=== PATIENT | female | born 1960 | race Hispanic/Latino ===

== ENCOUNTER 2019-11-25 18:26 | Inpatient (IN) | payer SELFPAY, OTHER ==
--- OUTSIDE RECORDS SUMMARY | 2019-11-25 18:28 | XMS REPORT ---
:1960 Author Organization [facility] t Address [address] [place] [address] Care Team Providers Name Role Phone Alejandro Weinstein Attending Clinician Problems This patient has no known problems. Allergies, Adverse Reactions, Alerts This patient has no known allergies or adverse reactions. Medications This patient has no known medications. Procedures This patient has no known procedures. Encounters Start End Encounter Admission Attending Care Care Encounter Source Date/Time Date/Time Type Type Clinicians Facility Department ID 2019-09-12 2019-09-12 Office LUZMA Hunter [id number] 09:45:38 10:44:27 Visit Rosa Allen BONDED STRAND OPERATOR [id number] [facility] [id number] MATERNAL [id number] & CHILD [address] [place] [address] Results This patient has no known results.
--- OUTSIDE RECORDS SUMMARY | 2019-11-25 18:29 | XMS REPORT | Summary of Care ---
:1960 Author Organization [facility] - Health Address [address] [place] [address] Care Team Providers Name Role Phone Alejandro Hunter [facility] Primary Care Provider Encounter Details Date Type Department Care Team Description 09/07/2019 Orders Only [facility] Doctor Unassigned, No [address] [facility] [place] [address] [address] [place] [address] Allergies No Known Allergiesdocumented as of this encounter (statuses as of 09/07/2019) Medications Medication Sig Dispensed Refills Start Date End Date Status METFORMIN HCL Take by mouth. 0 Active (METFORMIN ORAL) lisinopril Take 10 mg by 0 Activ e (PRINIVIL,ZESTRIL) 10 mouth daily. mg tablet documented as of this encounter (statuses as of 09/07/2019) Active Problems Problem Noted Date Well woman exam 11/18/2015 Contraceptive management 11/18/2015 Morbid obesity 11/18/2015 Type 2 diabetes mellitus 11/18/2015 Essential hypertension, benign 11/18/2015 History of tubal ligation 11/18/2015 documented as of this encounter (statuses as of 09/07/2019) Immunizations Name Administration Dates Next Due Tdap 11/16/2012 documented as of this encounter Social History Tobacco Use Types Packs/Day Years Used Date Former Smoker Smokeless Tobacco: Never Used Alcohol Use Drinks/Week oz/Week Comments No 0 Standard drinks or equivalent 0.0 Sex Assigned at Date Recorded Not on file Job Start Date Occupation Industry Not on file Not on file Not on file Travel History Travel Start Travel End No recent travel history available. documented as of this encounter Last Filed Vital Signs Not on filedocumented in this encounter Plan of Treatment Health Maintenance Due Date Last Done Comments HEPATITIS C (HCV) SCREEN 1960 HgA1C 1962 PNEUMOCOCCAL 0-64 YEARS COMBINED 11/25/1967 SERIES (1 of 1 - PPSV23) CREATININE (SERUM) 11/25/1971 EYE EXAM 11/25/1971 LDL-C 11/25/1971 URINE MICROALBUMIN 11/25/1971 FOOT EXAM 11/25/1979 COLONOSCOPY 11/25/2011 Zoster Recombinant Vaccine (SHINGRIX) 11/25/2011 (1 of 2) LUNG CANCER SCREEN: Recommended for 2016 age 55-80 with 30 + pack year history INFLUENZA VACCINE (#1) 2019 Breast Cancer Screening (MAMMOGRAM) 09/14/2019 09/13/2018 PAP SMEAR 09/11/2021 09/11/2018, 11/17/2015, 01/06/2007 DTaP,Tdap,and Td Vaccines (2 - Td) 11/16/2022 11/16/2012 documented as of this encounter Procedures Procedure Name Priority Date/Time Associated Diagnosis Comme nts ASSIGNMENT OF BENEFITS Routine 09/07/2019 9:44 AM 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
--- OUTSIDE RECORDS SUMMARY | 2019-11-25 18:29 | XMS REPORT | Summary of Care ---
:[address] [facility] Address [address] [place] [address] Care Team Providers Name Role Phone Alejandro Hunter Primary Care Provider Reason for Referral Radiology Services (Routine) Status Reason Specialty Diagnoses / Referred By Referred To Procedures Contact Contact New Request Diagnostic Diagnoses Well woman exam [place], Radiology Procedures BI SCREENING MAMMOGRAM BILATERAL JESSICA Land [address] [place] [address] Reason for Visit Reason Comments Well Woman Exam Encounter Details Date Type Department Care Team Description 09/12[facility] ounter for other contraceptive management (Primary Dx); JESSICA Ge History of tubal ligation; [address] [place] [address] Well woman exam; [facility] A Morbid obesity; [address] [place] [address] Essential hypertension, benign; [phone] Diabetes mellitus type 1, controlled, wi thout complications Allergies No Known Allergiesdocumented as of this encounter (statuses as of 09/12/2019) Medications Medication Sig Dispensed Refills Start Date End Date Status METFORMIN HCL (METFORMIN Take by mouth. 0 Active ORAL) lisinopril Take 10 mg by 0 Activ e (PRINIVIL,ZESTRIL) 10 mg mouth daily. tablet atorvastatin 40 mg Take 40 mg by 0 Active tablet mouth at bedtime. documented as of this encounter (statuses as of 09/12/2019) Active Problems Problem Noted Date Well woman exam 11/18/2015 Contraceptive management 11/18/2015 Morbid obesity 11/18/2015 Type 2 diabetes mellitus 11/18/2015 Essential hypertension, benign 11/18/2015 History of tubal ligation 11/18/2015 documented as of this encounter (statuses as of 09/12/2019) Immunizations Name Administration Dates Next Due Tdap 11/16/2012 documented as of this encounter Social History Tobacco Use Types Packs/Day Years Used Date Former Smoker Cigarettes Quit: 09/12/19 08 Smokeless Tobacco: Never Used Alcohol Use Drinks/Week oz/Week Comments No 0 Standard drinks or equivalent 0.0 Sex Assigned at Date Recorded Not on file Job Start Date Occupation Industry Not on file Not on file Not on file Travel History Travel Start Travel End No recent travel history available. documented as of this encounter Last Filed Vital Signs Vital Sign Reading Time Taken Comments Blood Pressure 138/80 09/12/2019 10:44 AM TIPPLE OPERATOR Pulse 65 09/12/2019 9:56 AM TIPPLE OPERATOR Temperature 36.2 C (97.1 F) 09/12/2019 9:56 AM TIPPLE OPERATOR Respiratory Rate 16 09/12/2019 9:56 AM TIPPLE OPERATOR Oxygen Saturation - - Inhaled Oxygen Concentration - - Weight 104.4 kg (230 lb 2 oz) 09/12/2019 9:56 AM TIPPLE OPERATOR Height 165.1 cm (5' 5") 09/12/2019 9:56 AM TIPPLE OPERATOR Body Mass Index 38.29 09/12/2019 9:56 AM TIPPLE OPERATOR documented in this encounter Progress Notes Rosa Hunter, [facility] - 09/12/2019 9:30 AM CST Chief complaint: Chief Complaint Patient presents with Well Woman Exam HPI: the patient is here today for WWE and contraceptive mangement. She reports she is doing well with no issues or concerns today. She declines the need for STi testing today. She reports she is menopausal and had a tubal done and is pleased with her method for control. [facility] and DM Pt (denies) current or past physical, sexual or emotional abuse. Histories OB History Para Term AB Living 5 5 5 5 SAB TAB Ectopic Multiple Live Births # Outcome Date GA Lbr [place]/2nd Weight Sex Delivery Anes PTL Lv 5 Term 4 Term 3 Term 2 Term 1 Term Past Medical History: Diagnosis Date Borderline high cholesterol on medication Depression Diabetes mellitus 2006 ongoing, taking medication Hypertension 2006 ongoing, on medication STD (sexually transmitted disease) trichomonas Stroke 2012 4 yrs ago Family History Problem Relation Age of Onset Arthritis Mother Osteoporosis Mother Diabetes Mother Heart Mother Diabetes Maternal Uncle Cancer Maternal Grandmother No Significant Medical Problems Father No Significant Medical Problems Sister No Significant Medical Problems Brother No Significant Medical Problems Maternal Aunt No Significant Medical Problems Paternal Aunt No Significant Medical Problems Paternal Uncle Asthma NoFHx defects NoFHx Breast Cancer NoFHx Colon Cancer NoFHx Ovarian Cancer NoFHx Uterine Cancer NoFHx Depression NoFHx Genetic NoFHx High cholesterol NoFHx Hypertension NoFHx Mental retardation NoFHx Neurological NoFHx Psychiatry NoFHx Other - see comments NoFHx Family Status Relation Name Status Mo Alive MUnc (Not Specified) MGMo Fa Alive Sis Alive Bro (Not Specified) MAunt (Not Specified) PAunt (Not Specified) PUnc (Not Specified) MGFa PGMo PGFa NoFHx (Not Specified) Past Surgical History: Procedure Laterality Date CHOLECYSTECTOMY TUBAL LIGATION Social History Socioeconomic History Marital status: Spouse name: Not on file Number of children: 5 Years of education: Not on file Highest education level: Not on file Occupational History Occupation: none Social Needs Financial resource strain: Not on file Food insecurity: Worry: Not on file Inability: Not on file Transportation needs: Medical: Not on file Non-medical: Not on file Tobacco Use Smoking status: Former Smoker Types: Cigarettes Last attempt to quit: 09/12/2007 Years since quittin.0 Smokeless tobacco: Never Used Substance and Sexual Activity Alcohol use: No Alcohol/week: 0.0 standard drinks Drug use: No Sexual activity: Not Currently Partners: Male control/protection: Post-menopausal Comment: 3+ months Lifestyle Physical activity: Days per week: Not on file Minutes per session: Not on file Stress: Not on file Relationships Social connections: Talks on phone: Not on file Gets together: Not on file Attends anabaptism service: Not on file Active member of club or organization: Not on file Attends meetings of clubs or organizations: Not on file Relationship status: Not on file Intimate partner violence: Fear of current or ex partner: Not on file Emotionally abused: Not on file Physically abused: Not on file Forced sexual activity: Not on file Other Topics Concern Service Not Asked Blood Transfusions No Caffeine Concern Not Asked Occupational Exposure Not Asked Hobby Hazards Not Asked Sleep Concern Not Asked Stress Concern Not Asked Weight Concern Not Asked Special Diet Not Asked Back Care Not Asked Exercise Not Asked Bike Helmet Not Asked Seat Belt Not Asked Self-Exams Not Asked Social History Narrative No domestic violence or abuse Patient lives with spouse and family. Denominational preference Orthodoxy. Social History Substance and Sexual Activity Sexual Activity Not Currently Partners: Male control/protection: Post-menopausal Comment: 3+ months Labs No new labs and No visits with results within 3 Month(s) from this visit. Latest known visit with results is: Office Visit on 09/11/2018 Component Date Value High Risk HPV 09/11/2018 Negative Case Report 09/11/2018 Value:Gynecologic Cytology Case: [id number] Authorizing Provider: Rosa Hunter, Collected: 09/11/2018 1812 [facility] Ordering Location: [facility]- Received: 09/12/2018 0023 [place] First Screen: Max Chavez Specimen: Liquid Based Pap Preparation, CERVIX Clinical Information 09/11/2018 Value:routine Specimen Adequacy 09/11/2018 Satisfactory for Evaluation(Endocervical/Transformation Zone Component Absent) Interpretation 09/11/2018 Negative for intraepithelial lesion or malignancy LMP 09/11/2018 Post Menopausal (specify years in Comments) Educational Note 09/11/2018 Value:This result contains rich text formatting which cannot be displayed here. Radiology Radiology pending. Allergies Jayna has No Known Allergies. Medications Jayna has a current medication list which includes the following prescription(s): atorvastatin, lisinopril, and metformin hcl. Review of Systems Constitutional: Negative. HENT: Negative. Eyes: Negative. Respiratory: Negative. Breasts: Negative. Cardiovascular: Negative. Gastrointestinal: Negative. Genitourinary: Negative. Musculoskeletal: Negative. Skin: Negative. Neurological: Negative. Psychiatric/Behavioral: Negative. Endocrine: Endocrine negative BP (!) 169/90 (BP Location: Right arm, Patient Position: Sitting, BP CUFF SIZE: Adult Large) | Pulse 65 | Temp 36.2 C (97.1 F) (Oral) | Resp 16 | Ht 5' 5" (1.651 m) | Wt 230 lb 2 oz (104.4 kg) | LMP (LMP Unknown) | BMI 38.29 kg/m Pregravid BMI: Could not be calculated Physical Exam Vitals reviewed. Constitutional: She is oriented to person, place, and time. She appears well- developed and well-nourished. Her body habitus is normal. Cardiovascular: Regular rate and rhythm. No peripheral edema present. Pulmonary/Chest: Normal inspiratory effort. Neuro/Psychiatric: She has a normal mood and affect. She is oriented to person, place, and time. Skin: Skin normal. No lesion, no rash and no ulceration present. Breast: Right breast exhibits no mass, no nipple discharge and no tenderness. Left breast exhibits no mass, no nipple discharge and no tenderness. Breasts are symmetrical. Normal left breast and normalright breast Assessment/Plan Return to clinic in 1 year for WWE or sooner as needed Encounter for other contraceptive management (primary encounter diagnosis) History of tubal ligation Comment: routine Plan: no further mgmt Well woman exam Comment: routine Plan: BI SCREENING MAMMOGRAM BILATERAL Morbid obesity Comment: see bmi Plan: BMI discussed, appropriate weight gain, sensible diet, and exercise Essential hypertension, benign Diabetes mellitus type 1, controlled, without complications Comment: managed by PCP Plan: continue mgmt with PCP This visit did not involve counseling and coordination that comprised more than 50% of the visit time. JESSICA Pastrana 09/12/2019 10:47 AM LE OPERATOR Radha Mar RN - 09/12/2019 9:30 AM CST58 year old presents to the clinic for wwe. 1) Previous BCM: menopausal 2) Desired BCM: menopausal 3) LMP: 20+ years 4) Last [place]: 3+ months 5) Last Pap: 09/11/2018 Results: 09/11/20186 6) Tdap: 2012 7) Gardasil: N/A 8) C/O: Patient denies any complaints 9) Patient denies history of physical, emotional, or sexual abuse. Patient states that she currently feels safe at home. Sign LE OPERATOR documented in this encounter Plan of Treatment Date Type Specialty Care Team Description 10/10/2019 Appointment Radiology FarhatadryanTracedenis [place], [facility] [address] [facility] [place] [place] [address] [phone] Name Type Priority Associated Diagnoses Order S chedule BI SCREENING MAMMOGRAM IMAGING Routine Well woman exam Ex pected: 09/12/2019, BILATERAL Expires: 2020 Health Maintenance Due Date Last Done Comments EYE EXAM 09/13/2019 Postponed from 11/25/1971 ([place] Guidelines) HEPATITIS C (HCV) SCREEN 09/13/2019 Postpon ed from 1961 ([place] / Financial) Breast Cancer Screening 09/14/2019 09/13/2018 (MAMMOGRAM) COLONOSCOPY 09/19/2019 Postponed from 11/25/2011 ([place] Guidelines) PNEUMOCOCCAL 0-64 YEARS 09/30/2019 Postpone d from COMBINED SERIES (1 of - 1967 (Alternative PPSV23) Guidelines) CREATININE (SERUM) 09/11/2020 Postponed fro m 11/25/1971 ([place] / Financial) FOOT EXAM 09/11/2020 09/12/2019 HgA1C 09/11/2020 Postponed from 1962 ([place] Guidelines) LDL-C 09/11/2020 Postponed from 11/25/1971 ([place] / Financial) URINE MICROALBUMIN 09/11/2020 Postponed fro m 11/25/1971 ([place] Guidelines) Zoster Recombinant Vaccine 09/11/2020 Postp oned from (SHINGRIX) (1 of 2) 11/25/2011 ( Insurance / Financial) INFLUENZA VACCINE (#1) 2020 Postponed from 03/11/2019 ([place] / Financial) PAP SMEAR 09/11/2021 09/11/2018, 11/17/2015, 01/06/2007 DTaP,Tdap,and Td Vaccines (2 11/16/2022 11/16/2012 - Td) LUNG CANCER SCREEN: Discontinued Recommended for age 55-80 with 30 + pack year history documented as of this encounter Results Not on filedocumented in this encounter Visit Diagnoses Diagnosis Encounter for other contraceptive manage ment - Primary History of tubal ligation Tubal ligation status Well woman exam Routine general medical examination at a health care facility Morbid obesity Essential hypertension, benign Diabetes mellitus type 1, controlled, wi thout complications documented in this encounter Advance Directives Name Relationship Healthcare Agent Relationship Co mmunication Alison Landon Child Primary healthcare agent
--- OUTSIDE RECORDS SUMMARY | 2019-11-25 18:29 | XMS REPORT | Summary of Care ---
:1960 Author Organization [facility] Address [address] [place] [address] Care Team Providers Name Role Phone Alejandro Hunter Primary Care Provider Reason for Referral Radiology Services (Routine) Status Reason Specialty Diagnoses / Referred By Referred To Procedures Contact Contact New Request Diagnostic Diagnoses Well woman exam Akinnikki, Radiology Procedures BI SCREENING MAMMOGRAM BILATERAL JESSICA Land [address] [place] [address] Reason for Visit Reason Comments Well Woman Exam Encounter Details Date Type Department Care Team Description 09/12/2019 [facility] ounter for other contraceptive management (Primary Dx); JESSICA Ge History of tubal ligation; [address] [place] [address] Well woman exam; [facility] Morbid obesity; [address] [place] [address] Essential hypertension, benign; [phone] Diabetes mellitus type 1, controlled, wi thout [...] Comments Blood Pressure 138/80 09/12/2019 10:44 AM GUIDE Pulse 65 09/12/2019 9:56 AM GUIDE Temperature 36.2 C (97.1 F) 09/12/2019 9:56 AM GUIDE Respiratory Rate 16 09/12/2019 9:56 AM GUIDE Oxygen Saturation - - Inhaled Oxygen Concentration - - Weight 104.4 kg (230 lb 2 oz) 09/12/2019 9:56 AM GUIDE Height 165.1 cm (5' 5") 09/12/2019 9:56 AM GUIDE Body Mass Index 38.29 09/12/2019 9:56 AM GUIDE documented in this encounter Progress Notes Rosa Hunter, [facility] - 09/12/2019 9:30 AM CST Chief complaint: [...] method for control. [facility] and [...] file Gets together: Not on file Attends faith service: Not on file Active member of [...] abuse Patient lives with spouse and family. Hinduism preference Anabaptist. Social History Substance and Sexual Activity Sexual Activity Not Currently Partners: Male control/protection: Post-menopausal Comment: 3+ months Labs No new labs and No visits with results within 3 Month(s) from this visit. Latest known visit with results is: Office Visit on 09/11/2018 Component Date Value High Risk HPV 09/11/2018 Negative Case Report 09/11/2018 Value:Gynecologic Cytology Case: [id number] Authorizing Provider: Rosa Hunter, Collected: 09/11/[address] [facility] Ordering Location: [facility]- Received: 09/12/2018 0023 [place] First Screen: Max Chavez Specimen: Liquid Based [...] visit time. JESSICA Pastrana 09/12/2019 10:47 AM E Radha Mar RN - 09/12/2019 9:30 AM CST58 year old presents to the clinic for wwe. 1) Previous BCM: menopausal 2) Desired BCM: menopausal 3) LMP: 20+ years 4) Last [place]: 3+ months 5) Last Pap: 09/11/2018 Results: 09/11/20186 6) Tdap: 2012 7) Gardasil: N/A 8) C/O: Patient denies any complaints 9) Patient denies history of physical, emotional, or sexual abuse. Patient states that she currently feels safe at home. Sign E documented in this encounter Plan of Treatment Date Type Specialty Care Team Description 10/10/2019 Appointment Radiology FarhatadryanTracedenis [place], [facility] [address] [facility] [address] [phone] Name Type Priority Associated Diagnoses Order S [...]
--- NOTE | 2019-11-25 19:33 | RAD REPORT ---
EXAM DESCRIPTION: CT - Ct Stroke Brain Wo Cont - 11/25/2019 7:22 pm CLINICAL HISTORY: Slurred speech COMPARISON: 2011 TECHNIQUE: Computed axial tomography of the head was obtained. All CT scans are performed using dose optimization technique as appropriate and may include automated exposure control or mA/KV adjustment according to patient size. FINDINGS: An intracranial bleed is not seen . The ventricles are normal in caliber. No extra-axial fluid collection is noted. 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 Additional smaller old infarctions frontal lobes. Fluid within the sinuses/ mastoids is not seen. IMPRESSION: No acute intracranial abnormality is seen. If patient continues to have symptoms to [facility] an acute infarct MRI of the brain would be recommended. Dr Ford of the emergency room was notified at 7:26 p.m. November 25, 2019
--- NOTE | 2019-11-25 20:03 | RAD REPORT ---
EXAM DESCRIPTION: Monica Single View11/25/2019 7:39 pm CLINICAL HISTORY: fever COMPARISON: 2011 FINDINGS: The lungs appear clear of acute infiltrate. The heart is normal size IMPRESSION: No acute abnormalities displayed
[2019-11-25 20:08] LABS: Absolute Lymphocytes (CBC) 1.1 K/uL (0.7-4.9); Basophils % 0.5 % (0-1.3); Hematocrit 41.6 % (36.0-45.0); Lymphocytes % 6.4 % (15.3-44.8); MPV 9.5 fL (7.6-11.3); RBC Red Blood Cell Count 4.37 M/uL (3.86-4.86)
[2019-11-25] MEDS ORDERED: NA CHLORIDE 0.9% 1,000 ML ONE ×2 (20:15→20:49)
[2019-11-25 20:21] LABS: Protime INR 0.96
[2019-11-25 20:32] LABS: ALT/SGPT 39 U/L (12-78); AST/SGOT 24 U/L (15-37); Albumin 3.8 g/dL (3.4-5.0); Alkaline Phosphatase 66 U/L (45-117); Amylase 46 U/L (25-115); BUN Blood Urea Nitrogen 9 mg/dL (7-18); Bicarbonate 21 mmol/L (21-32); Bilirubin Direct 0.2 mg/dL (0-0.2); Bilirubin Total 0.7 mg/dL (0.2-1.0); CKMB Creatine Kinase MB < 1.0 ng/mL (0.3-3.6); Creatine Phosphokinase 102 U/L (26-192); Glucose Level 209 mg/dL (74-106); Lipase 95 U/L (73-393); Potassium 3.5 mmol/L (3.5-5.1); Protein, Total 7.7 g/dL (6.4-8.2); Sodium Level 138 mmol/L (136-145); Troponin (Emerg Dept Use Only) < 0.02 ng/mL (0.0-0.045)
[2019-11-25 20:39] LABS: Urine Blood 1+ (NEG); Urine Glucose NEGATIVE (NEG); Urine Protein NEGATIVE (NEG)
[2019-11-25 20:41] LABS: Urine Bacteria <20 /HPF (<20); Urine Culture Reflex Order NOT NEEDED; Urine RBC <5 /HPF (NONE SEEN)
--- NOTE | 2019-11-25 20:45 | ER ---
Nurse's Notes [facility] Name: Jayna Ladnon Age: 59 yrs Sex: Female : 1960 Arrival Date: 11/25/2019 Time: 18:34 Bed 6 Private MD: Diagnosis: Sepsis, unspecified organism Presentation: 11/24 18:24 Chief complaint: EMS states: Called out for hyperglycemia, BS 214. Pt. is A \T\ O x 4, rb1 anxious. Fever of 103, administered Tylenol 1 gram PO x 1. All vital signs are elevated. Coronavirus screen: Patient reports a cough. Patient denies shortness of breath or difficulty breathing. Patient reports a measured and/or subjective temperature greater than 100.4F. Patient denies travel on a cruise ship or to a country the [facility] currently lists as an affected area. Patient denies contact with known and/or suspected case of COVID-19. Ebola Screen: Patient denies travel to an Ebola-affected area in the 21 days before illness onset. Initial Sepsis Screen: Does the patient meet any 2 criteria? Temp <36.0*C (96.8*F)) or > 38.3*C (100.9*F). HR > 90 bpm. Does the patient have a suspected source of infection? Yes: Productive cough/pneumonia. Risk Assessment: Do you want to hurt yourself or someone else? Patient reports no desire to harm self or others. Onset of symptoms was November 25, 2019. 18:24 Method Of Arrival: EMS: [facility] rb1 18:24 Acuity: LOIDA 3 rb1 19:05 Acuity: LOIDA 2 ca1 Triage Assessment: 18:24 General: Appears in no apparent distress. comfortable, Behavior is calm, cooperative, rb1 Reports chills for fever for. Pain: Denies pain. Neuro: Level of Consciousness is awake, alert, obeys commands, Oriented to person, place, time, situation. Cardiovascular: Capillary refill < 3 seconds. Respiratory: Reports cough that is productive, Airway is patent Respiratory effort is even, unlabored, Respiratory pattern is regular, symmetrical, Denies shortness of breath. GI: No signs and/or symptoms were reported involving the gastrointestinal system. : No signs and/or symptoms were reported regarding the genitourinary system. Derm: Skin is pink, warm \T\ dry. Musculoskeletal: Range of motion: intact in all extremities. Historical: - Allergies: 18:24 No Known Allergies; rb1 - Home Meds: 20:06 lisinopril Oral [Active]; Metformin Oral [Active]; mg2 - PMHx: 18:24 diabetes; Hypertension; CVA; rb1 - PSHx: 18:24 Hysterectomy; rb1 - Immunization history:: Adult Immunizations up to date. - Social history:: Smoking status: Patient/guardian denies using. Screenin:24 Abuse screen: Denies threats or abuse. Nutritional screening: No deficits noted. rb1 Tuberculosis screening: No symptoms or risk factors identified. Fall Risk None identified. 20:18 Patient has been NPO before screening. The patient is alert, able to follow commands. mg2 The patient does not exhibit slurred or garbled speech The patient is not exhibiting difficulty speaking. The patient is able to swallow own secretions with no drooling or need for suction. Patient tolerated one teaspoon of water. No drooling, immediate coughing, gurgling, or clearing of the throat was noted. The patient tolerated 90mL of water. No drooling, immediate coughing, gurgling, or clearing of the throat was noted. The patient passed the bedside swallow screening. Oral medications may be given as ordered. Contact Physician for further diet orders. Provider notified of bedside swallow screening results: Dallas Ford MD. Assessment: 18:24 General: See triage assessment. rb1 20:04 General: Appears in no apparent distress. comfortable, Behavior is calm, cooperative. mg2 Pain: Denies pain. Neuro: Level of Consciousness is awake, alert, obeys commands, Oriented to person, place, time, situation. Cardiovascular: Capillary refill < 3 seconds Patient's skin is warm and dry. Respiratory: Airway is patent Respiratory effort is even, unlabored, Respiratory pattern is regular, symmetrical. GI: No signs and/or symptoms were reported involving the gastrointestinal system. : No signs and/or symptoms were reported regarding the genitourinary system. EENT: No signs and/or symptoms were reported regarding the EENT system. Derm: Skin is intact, is healthy with good turgor, Skin is pink, warm \T\ dry. normal. Musculoskeletal: Circulation, motion, and sensation intact. Capillary refill < 3 seconds. 20:38 Reassessment: CRITICAL LAB: LACTATE 3.7. Dr. Ford notified. ca1 21:06 Reassessment: Tereza [phone]. Daughter call for updates. ca1 21:07 Reassessment: Patient appears in no apparent distress at this time. Patient and/or ca1 family updated on plan of care and expected duration. Pain level reassessed. Patient is alert, oriented x 3, equal unlabored respirations, skin warm/dry/pink. 22:20 Reassessment: Patient appears in no apparent distress at this time. Patient and/or mg2 family updated on plan of care and expected duration. Pain level reassessed. Patient is alert, oriented x 3, equal unlabored respirations, skin warm/dry/pink. Vital Signs: 18:24 BP 165 / 94; Pulse 119; Resp 18; Temp 101.2; Pulse Ox 95% ; Weight 103.42 kg (R); rb1 Height 5 ft. 5 in. (165.10 cm) (R); Pain 0/10; 20:02 BP 138 / 89; Pulse 121; Resp 24 S; Pulse Ox 96% on R/A; ca1 20:05 Temp 98.7(O); ca1 21:02 BP 144 / 93; Pulse 102; Resp 18; Pulse Ox 98% on R/A; mg2 21:07 Temp 98.8(O); ca1 21:38 BP 141 / 73; Pulse 103; Resp 18 S; Pulse Ox 99% on R/A; ca1 22:19 BP 133 / 86; Pulse 94; Resp 18; Temp 99; Pulse Ox 98% on R/A; mg2 18:24 Body Mass Index 37.94 (103.42 kg, 165.10 cm) rb1 ED Course: 18:24 Arm band placed on right wrist. rb1 18:24 Patient has correct armband on for positive identification. Bed in low position. Call rb1 light in reach. Side rails up X 1. Pulse ox on. NIBP on. Warm blanket given. 18:24 No provider procedures requiring assistance completed. rb1 18:24 Flu and/or RSV swab sent to lab. Strep swab sent to lab. Covid. rb1 18:34 Patient arrived in ED. aa5 18:52 Dafne Jesus, RN is Primary Nurse. rb1 18:59 Triage completed. rb1 19:08 Dallas Ford MD is Attending Physician. tw4 19:21 CT Stroke Brain w/o Contrast In Process Unspecified. EDMS 19:45 Stroke CXR 1 View In Process Unspecified. EDMS 19:45 Inserted saline lock: 20 gauge in right forearm, using aseptic technique. Blood mg2 collected. 20:44 Noemy Barrow MD is Hospitalizing Provider. tw4 21:08 Patient admitted, IV remains in place. ca1 Administered Medications: 20:11 Drug: NS 0.9% 1000 ml Route: IV; Rate: 1 bolus; Site: right forearm; mg2 22:23 Follow up: Response: No adverse reaction; IV Status: Completed infusion; IV Intake: mg2 1000ml 20:43 Drug: Rocephin - (cefTRIAXone) 1 grams Route: IVPB; Infused Over: 30 mins; Site: left mg2 forearm; 22:23 Follow up: Response: No adverse reaction; IV Status: Completed infusion mg2 20:43 Drug: AZITHromycin 1 grams Route: PO; mg2 22:22 Follow up: Response: No adverse reaction mg2 20:45 Drug: NS 0.9% 2000 ml Route: IV; Rate: 2000 ml; Site: right forearm; mg2 22:23 Follow up: Response: No adverse reaction; IV Status: Infusion continued upon admission; mg2 IV Intake: 200ml 20:49 CANCELLED (Duplicate Order): NS 0.9% 2000 ml IV at 2000 ml once; 30 ml/kg order mg2 obtained pt has recieved 1 liter Intake: 22:23 IV: 200ml; Total: 200ml. mg2 22:23 IV: 1000ml; Total: 1200ml. mg2 Outcome: 20:44 Decision to Hospitalize by Provider. tw4 22:21 Admitted to Tele accompanied by [facility], room 414, with chart, Report called to barbi Grover RN 22:21 Condition: stable 22:21 Instructed on the need for admit, Demonstrated understanding of instructions. 22:40 Patient left the ED. mg2 Signatures: Dispatcher [employer] EDMS Elise Mensah, CORI RN aa5 Dafne Jesus, RN RN rb1 Dallas Ford MD MD tw4 Silver Sebastian RN RN mg2 Radha Salas RN RN ca1 Corrections: (The following items were deleted from the chart) 21:08 21:06 Reassessment: Tereza [phone] ca1 ca1 21:31 21:03 Acuity: LOIDA 2 ca1 ca1
--- NOTE | 2019-11-25 20:46 | EDPHYS ---
Physician Documentation [facility] Name: Jayna Landon Age: 59 yrs Sex: Female : 1960 Arrival Date: 11/25/2019 Time: 18:34 Bed 6 Private MD: ED Physician Dallas Ford HPI: 11/24 19:44 This 59 yrs old Female presents to ER via EMS with complaints of High Blood tw4 Sugar. 19:44 The patient reports fever, not measured (subjective). Onset: The symptoms/episode tw4 began/occurred today. Modifying factors: there are no obvious modifying factors. Associated signs and symptoms: Pertinent positives: arthralgias, chills, shortness of breath, Pertinent negatives: abdominal pain, altered mental status, cough, diarrhea, pulling at ears, headache, nausea, night sweats, runny nose, sinus congestion, sinus drainage, skin rash, sore throat. Severity of symptoms: At their worst the symptoms were moderate in the emergency department the symptoms are unchanged. The patient has not experienced similar symptoms in the past. Historical: - Allergies: 18:24 No Known Allergies; rb1 - Home Meds: 20:06 lisinopril Oral [Active]; Metformin Oral [Active]; mg2 - PMHx: 18:24 diabetes; Hypertension; CVA; rb1 - PSHx: 18:24 Hysterectomy; rb1 - Immunization history:: Adult Immunizations up to date. - Social history:: Smoking status: Patient/guardian denies using. ROS: 19:44 Cardiovascular: Negative for chest pain, palpitations, and edema, Respiratory: Negative tw4 for shortness of breath, cough, wheezing, and pleuritic chest pain, Abdomen/GI: Negative for abdominal pain, nausea, vomiting, diarrhea, and constipation, Back: Negative for injury and pain, MS/Extremity: Negative for injury and deformity, Skin: Negative for injury, rash, and discoloration, Neuro: Negative for headache, weakness, numbness, tingling, and seizure. 19:44 Constitutional: Positive for chills, fever, Negative for body aches, fatigue. Exam: 19:44 Constitutional: This is a well developed, well nourished patient who is awake, alert, tw4 and in no acute distress. Head/Face: Normocephalic, atraumatic. Chest/axilla: Normal chest wall appearance and motion. Nontender with no deformity. No lesions are appreciated. Cardiovascular: Regular rate and rhythm with a normal S1 and S2. No gallops, murmurs, or rubs. Normal PMI, no JVD. No pulse deficits. Respiratory: Lungs have equal breath sounds bilaterally, clear to auscultation and percussion. No rales, rhonchi or wheezes noted. No increased work of breathing, no retractions or nasal flaring. Abdomen/GI: Soft, non-tender, with normal bowel sounds. No distension or tympany. No guarding or rebound. No evidence of tenderness throughout. Back: No spinal tenderness. No costovertebral tenderness. Full range of motion. MS/ Extremity: Pulses equal, no cyanosis. Neurovascular intact. Full, normal range of motion. Neuro: Awake and alert, GCS 15, oriented to person, place, time, and situation. Cranial nerves II-XII grossly intact. Motor strength 5/5 in all extremities. Sensory grossly intact. Cerebellar exam normal. Normal gait. Vital Signs: 18:24 BP 165 / 94; Pulse 119; Resp 18; Temp 101.2; Pulse Ox 95% ; Weight 103.42 kg (R); rb1 Height 5 ft. 5 in. (165.10 cm) (R); Pain 0/10; 20:02 BP 138 / 89; Pulse 121; Resp 24 S; Pulse Ox 96% on R/A; ca1 20:05 Temp 98.7(O); ca1 21:02 BP 144 / 93; Pulse 102; Resp 18; Pulse Ox 98% on R/A; mg2 21:07 Temp 98.8(O); ca1 21:38 BP 141 / 73; Pulse 103; Resp 18 S; Pulse Ox 99% on R/A; ca1 22:19 BP 133 / 86; Pulse 94; Resp 18; Temp 99; Pulse Ox 98% on R/A; mg2 18:24 Body Mass Index 37.94 (103.42 kg, 165.10 cm) rb1 MDM: 19:09 Patient medically screened. tw4 19:44 Differential diagnosis: viral Infection, bacterial infection, URI, bronchitis, tw4 pneumonia. Data reviewed: vital signs, nurses notes. Data interpreted: Pulse oximetry: Interpretation: normal. Counseling: I had a detailed discussion with the patient and/or guardian regarding: the historical points, exam findings, and any diagnostic results supporting the discharge/admit diagnosis. Special discussion: I discussed with the patient/guardian in detail that at this point there is no indication for admission to the hospital. It is understood, however, that if the symptoms persist or worsen the patient needs to return immediately for re-evaluation. 11/24 18:43 Order name: Flu; Complete Time: 20:06 11/24 18:43 Order name: Strep; Complete Time: 20:06 11/24 18:43 Order name: COVID-19 11/24 18:44 Order name: Basic Metabolic Panel; Complete Time: 20:33 11/24 18:44 Order name: CBC with Diff; Complete Time: 21:50 11/24 21:50 Interpretation: Normal except: WBC 16.9; MCV 95.0; MN% 2.7; LYM% 6.4; DIANA% 90.0; NEUT A tw4 15.2. 11/24 18:44 Order name: Protime (+inr); Complete Time: 20:33 11/24 18:44 Order name: Ptt, Activated; Complete Time: 20:33 11/24 18:45 Order name: Amylase, Serum; Complete Time: 20:33 11/24 18:45 Order name: Blood Culture Adult (2) 11/24 18:45 Order name: Ckmb; Complete Time: 20:33 11/24 18:45 Order name: CPK; Complete Time: 20:33 11/24 18:45 Order name: Lactate; Complete Time: 21:50 11/24 21:50 Interpretation: Normal except: LAC 3.7. 11/24 18:45 Order name: LFT's; Complete Time: 20:33 11/24 18:45 Order name: Lipase; Complete Time: 20:33 11/24 18:45 Order name: Procalcitonin; Complete Time: 21:50 11/24 21:50 Interpretation: Within normal limits: Procalcitonin 0.23. 11/24 18:45 Order name: Troponin (emerg Dept Use Only); Complete Time: 20:33 11/24 18:45 Order name: Urine Microscopic Only; Complete Time: 21:50 [facility] 11/24 21:50 Interpretation: Within normal limits. [facility] 11/24 19:17 Order name: Throat Culture [facility] 11/24 20:06 Order name: Urine Dipstick--Ancillary (enter results); Complete Time: 21:50 [facility] 11/24 21:50 Interpretation: Normal except: UBLD 1+; UKET 1+. [facility] 11/24 20:06 Order name: Urine --Ancillary (enter results); Complete Time: 21:50 [facility] 11/24 21:50 Interpretation: Within normal limits: URINE PREG NEG. [facility] 11/24 20:08 Order name: Glucose, Ancillary Testing; Complete Time: 20:33 [facility] 11/24 20:38 Order name: Urine Microscopic Only [facility] 11/24 21:41 Order name: CBC Smear Scan; Complete Time: 21:50 [facility] 11/24 21:45 Order name: Urinalysis [facility] 11/24 21:45 Order name: CBC with Automated Diff [facility] 11/24 21:45 Order name: CBC with Automated Diff [facility] 11/24 21:45 Order name: Comprehensive Metabolic Panel [facility] 11/24 21:45 Order name: Comprehensive Metabolic Panel [facility] 11/24 21:45 Order name: Lactate [facility] 11/24 21:45 Order name: Lactate [facility] 11/24 18:44 Order name: CT Stroke Brain w/o Contrast; Complete Time: 20:06 [facility] 11/24 18:44 Order name: Stroke CXR 1 View; Complete Time: 20:33 [facility] 11/24 18:44 Order name: EKG; Complete Time: 18:45 [facility] 11/24 18:44 Order name: Accucheck; Complete Time: 20:01 [facility] 11/24 18:44 Order name: Cardiac monitoring; Complete Time: 20:01 [facility] 11/24 18:44 Order name: EKG - Nurse/Tech; Complete Time: 20:01 [facility] 11/24 18:44 Order name: IV Saline Lock; Complete Time: 20:01 [facility] 11/24 18:44 Order name: Labs collected and sent; Complete Time: 20:01 [facility] 11/24 18:44 Order name: NPO; Complete Time: 20:01 [facility] 11/24 18:44 Order name: O2 Per Protocol; Complete Time: 20:01 [facility] 11/24 18:44 Order name: O2 Sat Monitoring; Complete Time: 20:02 [facility] 11/24 18:44 Order name: Stroke Swallow Screen; Complete Time: 20:02 11/24 18:45 Order name: IV Saline Lock - Large Bore; Complete Time: 19:59 [facility] 11/24 18:45 Order name: Urine Dipstick-Ancillary (obtain specimen); Complete Time: 19:59 [facility] 11/24 21:45 Order name: Regular EDMS 11/24 21:45 Order name: Magnesium EDMS 11/24 21:45 Order name: Magnesium EDMS 11/24 21:45 Order name: Phosphorus EDMS 11/24 21:45 Order name: Phosphorus EDMS EC:45 Rate is 177 beats/min. Rhythm is regular. QRS [place] is Normal. RI interval is normal. tw4 QRS interval is normal. QT interval is normal. No Q waves. T waves are Flattened in leads V5, V6. No ST changes noted. Clinical impression: Sinus tachycardia. Interpreted by me. Reviewed by me. Administered Medications: 20:11 Drug: NS 0.9% 1000 ml Route: IV; Rate: 1 bolus; Site: right forearm; mg2 22:23 Follow up: Response: No adverse reaction; IV Status: Completed infusion; IV Intake: mg2 1000ml 20:43 Drug: Rocephin - (cefTRIAXone) 1 grams Route: IVPB; Infused Over: 30 mins; Site: left mg2 forearm; 22:23 Follow up: Response: No adverse reaction; IV Status: Completed infusion mg2 20:43 Drug: AZITHromycin 1 grams Route: PO; mg2 22:22 Follow up: Response: No adverse reaction mg2 20:45 Drug: NS 0.9% 2000 ml Route: IV; Rate: 2000 ml; Site: right forearm; mg2 22:23 Follow up: Response: No adverse reaction; IV Status: Infusion continued upon admission; mg2 IV Intake: 200ml 20:49 CANCELLED (Duplicate Order): NS 0.9% 2000 ml IV at 2000 ml once; 30 ml/kg order mg2 obtained pt has recieved 1 liter Disposition: 11/25/19 20:44 Hospitalization ordered by Noemy Barrow for Inpatient Admission. Preliminary diagnosis is Sepsis, unspecified organism. - Bed requested for Telemetry/MedSurg (Inpatient). - Status is Inpatient Admission. mg2 - Condition is Fair. - Problem is new. - Symptoms are unchanged. Signatures: Dispatcher [employer] EDMS Piotr Aguilar, RN RN Elise Mensah RN RN aa5 Kelly Long RN RN Dafne Jesus, RN RN rb1 Dallas Ford MD MD tw4 Silver Sebastian RN RN mg2 Corrections: (The following items were deleted from the chart) 20:50 20:44 NS 0.9% 2000 ml IV at 2000 ml once; 30 ml/kg order obtained pt has recieved 1 mg2 liter ordered. 22:07 20:44 Hospitalization Ordered by Noemy Barrow MD for Inpatient Admission. Preliminary cg diagnosis is Sepsis, unspecified organism. Bed requested for Telemetry/MedSurg (Inpatient). Status is Inpatient Admission. Condition is Fair. Problem is new. Symptoms are unchanged. tw4 22:40 22:07 11/25/2019 20:44 Hospitalization Ordered by Noemy Barrow MD for Inpatient mg2 Admission. Preliminary diagnosis is Sepsis, unspecified organism. Bed requested for Telemetry/MedSurg (Inpatient). Status is Inpatient Admission. Condition is Fair. Problem is new. Symptoms are unchanged. cg
[2019-11-25] MEDS ORDERED: AZITHROMYCIN 250 MG TAB ONE (20:49)
[2019-11-25] MEDS ORDERED: CEFTRIAXONE/SWI 1gm 1 GM/10 ML SYR ONE (20:49)
[2019-11-25] MEDS ORDERED: IPRATROPIUM BROM 0.5MG/2.5ML NEB PRN (21:33)
[2019-11-25] MEDS ORDERED: ACETAMINOPHEN 500 MG TAB PO PRN (21:33)
[2019-11-25] MEDS ORDERED: ONDANSETRON 4 MG/2 ML VIAL IV PRN (21:33)
[2019-11-25] MEDS ORDERED: ALBUTEROL 2.5 MG/3 ML NEB SOL NEB PRN (21:33)
[2019-11-25 21:40] LABS: Blood Morphology Comment NOT SEEN (NOT SEEN); Platelet Estimate ADEQ; Urine White Blood Cell Casts OK
[2019-11-25] MEDS ORDERED: Levofloxacin500mg IV 500 MG/100 ML BAG IV SCH (22:00)
[2019-11-25] MEDS: ALPRAZOLAM 0.25 MG TABLET PO PRN (23:04)
[2019-11-25] MEDS: NA CHLORIDE 0.9% 1,000 ML IV SCH (23:04)
[2019-11-25 23:08] VITALS: BMI 37.9
[2019-11-25] MEDS ORDERED: PIPER/TAZO/NS 3.375gm 6.750 GM/200 ML BAG ONE (23:19)
[2019-11-25] MEDS: PIPER/TAZO/NS 3.375gm 3.375 GM/100 ML BAG IVPB SCH (23:21)
[2019-11-26] MEDS: PIPER/TAZO/NS 3.375gm 3.375 GM/100 ML BAG IVPB SCH ×3 (05:41→16:05)
[2019-11-26 05:50] LABS: Bilirubin Total 0.6 mg/dL (0.2-1.0); Magnesium 1.9 mg/dL (1.8-2.4); Phosphorus 3.4 mg/dL (2.5-4.9); Potassium 3.5 mmol/L (3.5-5.1); Protein, Total 6.3 g/dL (6.4-8.2)
[2019-11-26 06:13] LABS: Urine Appearance CLEAR; Urine Bilirubin NEGATIVE (NEG); Urine Blood NEGATIVE (NEG); Urine Color YELLOW; Urine Glucose NEGATIVE (NEG); Urine Protein NEGATIVE (NEG); Urine Urobilinogen 0.2 mg/dL (0.2-1.0); Urine pH 6.5 (5.0-7.0)
[2019-11-26 06:14] LABS: Urine Microscopic Reflex ORDER UMIC
[2019-11-26 06:26] LABS: Urine Bacteria <20 /HPF (<20); Urine Culture Reflex Order REFLEXED; Urine RBC <5 /HPF (NONE SEEN)
[2019-11-26 06:36] LABS: Absolute Lymphocytes (CBC) 2.3 K/uL (0.7-4.9); Basophils % 0.6 % (0-1.3); Hematocrit 37.8 % (36.0-45.0); Lymphocytes % 10.6 % (15.3-44.8); RBC Red Blood Cell Count 3.91 M/uL (3.86-4.86)
--- NOTE | 2019-11-26 07:51 | P.HP ---
Certification for Inpatient Patient admitted to: Inpatient With expected LOS: >2 Midnights Patient will require the following post-hospital care: None Practitioner: I am a practitioner with admitting privileges, knowledge of patient current condition, hospital course, and medical plan of care. Services: Services provided to patient in accordance with Admission requirements found in Title 42 Section 412.3 of the Code of Federal Regulations Patient History Date of Service: 11/25/19 Reason for admission: Fever; leukocytosis; nausea/vomiting/diarrhea; lactic acidosis History of Present Illness: patient is a 59-year-old female who came to the hospital with intractable nausea vomiting and diarrhea. She has been feeling sick for over a week. She started off with abdomen pain along with persistent vomiting. She started off with the nausea and vomiting a week prior. This resolved and then she started having multiple days of diarrhea. She has had some abdominal discomfort, but she has spiked temp of a 103 so she came into the hospital because she thought she may have COVID-19. Patient's chest x-ray was unremarkable. Because of her fever and her abdominal symptoms she was admitted to the hospital for possible sepsis. Allergies No Known Allergies Allergy (Verified 11/26/19 00:14) Home Medications: Folic Acid 1 mg PO DAILY #0 tablet 09/20/11 Aspirin [Aspirin EC 81 MG] 81 mg PO DAILY 11/26/19 Lovastatin 40 mg PO BEDTIME 11/26/19 Metformin HCl [Glucophage] 1,000 mg PO BIDWM 11/26/19 - Past Medical/Surgical History Has patient received pneumonia vaccine in the past: Yes Diabetic: Yes -: DM-2 -: hyperlipidemia -: CVA -: hysterectomy -: Laparoscopic cholecystectomy - Family History Father Family History: Reviewed- Non-Contributory - Social History Smoking Status: Never smoker Alcohol use: No CD- Drugs: No Caffeine use: Yes Place of Residence: Home Review of Systems 10-point ROS is otherwise unremarkable Physical Examination - Vital Signs Temperature: 97.7 F Blood Pressure: 144/68 Pulse: 65 Respirations: 16 Pulse Ox (%): 95 - Physical Exam General: Alert, In no apparent distress, Oriented x3 HEENT: Atraumatic, PERRLA, Mucous membr. moist/pink, EOMI, Sclerae nonicteric Neck: Supple, 2+ carotid pulse no bruit, No LAD, Without JVD or thyroid abnormality Respiratory: Clear to auscultation bilaterally, Normal air movement Cardiovascular: Regular rate/rhythm, Normal S1 S2, No murmurs Gastrointestinal: Normal bowel sounds, Soft and benign, Non-distended, No rebound, No guarding, Tenderness (Epigastric region) Musculoskeletal: No clubbing, No swelling, No tenderness Integumentary: No rashes Neurological: Normal gait, Normal speech, Normal strength at 5/5 x4 extr, Normal tone, Sensation intact, Cranial nerves 3-12 intact, Normal affect Lymphatics: No axilla or inguinal lymphadenopathy - Studies Laboratory Data (last 24 hrs) 11/25/19 19:45: PT 11.3, INR 0.96, APTT 27.1 11/25/19 19:45: WBC 16.9 H, Hgb 14.2, Hct 41.6, Plt Count 290 11/25/19 19:45: Sodium 138, Potassium 3.5, BUN 9, Creatinine 0.88, Glucose 209 H, Total Bilirubin 0.7, AST 24, ALT 39, Alkaline Phosphatase 66, Amylase 46, Lipase 95 Microbiology Data (last 24 hrs): 11/25/19 18:40 Nasopharnyx Influenza Type A Antigen Screen - Final 11/25/19 18:40 Nasopharnyx Influenza Type B Antigen Screen - Final 11/25/19 18:40 Throat Group A Streptococcus Rapid Screen - Final Assessment & Plan - Problems (Diagnosis) (1) Abdominal pain Current Visit: Yes Status: Acute (2) Intractable nausea and vomiting Current Visit: Yes Status: Acute (3) Diarrhea Current Visit: Yes Status: Acute (4) Lactic acidosis Current Visit: Yes Status: Acute (5) Leukocytosis Current Visit: Yes Status: Acute - Plan 1. Continue with IV hydration 2. Continue with IV antibiotics 3. Continue with antiemetics 4. NPO 5. CT abdomen/pelvis 6. Monitor labs closely; repeat CBC, BMP, and lactic acid/procalcitonin level is negative 7. GI and DVT prophylaxis Discharge Plan: Home Plan to discharge in: Greater than 2 days - Advance Directives Does patient have a Living Will: No Does patient have a Durable POA for Healthcare: No - Code Status/Comfort Care Code Status Assessed: Yes Code Status: Full Code Critical Care: No Time Spent Managing PTS Care (In Minutes): 45
--- NOTE | 2019-11-26 07:56 | P.PN ---
Subjective Date of Service: 11/26/19 Patient is clinically doing well with no new complaints. She does state that she feels really good. However, her white blood cell count is still elevated to 20,000 now. Her lactic acid level is still elevated. She clinically appears to be doing well; however, with his symptoms and her lab abnormalities we will get CT scan to further evaluate. Review of Systems 10-point ROS is otherwise unremarkable Physical Examination - Vital Signs Temperature: 97.7 F Blood Pressure: 144/68 Pulse: 65 Respirations: 16 Pulse Ox (%): 95 - Physical Exam General: Alert, In no apparent distress, Oriented x3 Respiratory: Clear to auscultation bilaterally, Normal air movement Cardiovascular: Regular rate/rhythm, Normal S1 S2, No murmurs Gastrointestinal: Normal bowel sounds, Soft and benign, Non-distended, Ten derness Musculoskeletal: No clubbing, No swelling, No tenderness Neurological: Normal speech, Normal tone, Sensation intact, Cranial nerves 3-12 intact, Normal affect - Studies Laboratory Data (last 24 hrs) 11/25/19 19:45: PT 11.3, INR 0.96, APTT 27.1 11/25/19 19:45: WBC 16.9 H, Hgb 14.2, Hct 41.6, Plt Count 290 11/25/19 19:45: Sodium 138, Potassium 3.5, BUN 9, Creatinine 0.88, Glucose 209 H, Total Bilirubin 0.7, AST 24, ALT 39, Alkaline Phosphatase 66, Amylase 46, Lipase 95 Microbiology Data (last 24 hrs): 11/25/19 18:40 Nasopharnyx Influenza Type A Antigen Screen - Final 11/25/19 18:40 Nasopharnyx Influenza Type B Antigen Screen - Final 11/25/19 18:40 Throat Group A Streptococcus Rapid Screen - Final Medications List Reviewed: Yes Assessment & Plan - Problems (Diagnosis) (1) Abdominal pain Current Visit: Yes Status: Acute (2) Intractable nausea and vomiting Current Visit: Yes Status: Acute (3) Diarrhea Current Visit: Yes Status: Acute (4) Lactic acidosis Current Visit: Yes Status: Acute (5) Leukocytosis Current Visit: Yes Status: Acute - Plan Continue with current plan of care as mentioned below 1. Continue with gentle hydration; start diet after CT scan if unremarkable 2. Continue with IV antibiotics; continue monitoring vitals and temperature as she had a fever of 103 3. Continue with antiemetics 4. NPO 5. CT abdomen/pelvis pending 6. Monitor labs closely; repeat CBC, BMP, and lactic acid/procalcitonin level is negative 7. GI and DVT prophylaxis Discharge Plan: Home Plan to discharge in: 48 Hours - Advance Directives Does patient have a Living Will: No Does patient have a Durable POA for Healthcare: No - Code Status/Comfort Care Code Status: Full Code Critical Care: No Time Spent Managing PTS Care (In Minutes): 25
[2019-11-26] MEDS ORDERED: METFORMIN HCL 500 MG TAB PO SCH (08:00)
[2019-11-26] MEDS: FOLIC ACID 1 MG TABLET PO SCH ×2 (09:00→11:15)
[2019-11-26] MEDS ORDERED: KCL 20 MEQ/100 mL IVPB 20 MEQ/100 ML BAG IV SCH (09:00)
[2019-11-26] MEDS: ASPIRIN EC 81 MG TAB PO SCH ×2 (09:00→11:15)
[2019-11-26] MEDS: ENOXAPARIN 40 MG/0.4 ML SQ SCH (09:02)
[2019-11-26] MEDS: NA CHLORIDE 0.9% 1,000 ML IV SCH ×2 (09:02→17:01)
[2019-11-26] MEDS ORDERED: POTASSIUM CL SA 10 MEQ TAB PO ONE (09:06)
--- NOTE | 2019-11-26 10:22 | RAD REPORT ---
EXAM DESCRIPTION: CT - Abdomen Pelvis W Contrast - 11/26/2019 9:47 am CLINICAL HISTORY: N/V/D; leukocytosis; elevated lactate; fever-103 COMPARISON: Chest Single View dated 11/25/2019 TECHNIQUE: Biphasic, helical CT imaging of the abdomen and pelvis was performed following 100 ml non -ionic IV contrast. Oral contrast was given. All CT scans are performed using dose optimization technique as appropriate and may include automated exposure control or mA/KV adjustment according to patient size. FINDINGS: Patchy airspace opacities are present in the posterior gutter on the right more prominent airspace consolidation is seen in the posterior gutter on the left abutting the left hemidiaphragm. N o endobronchial lesion. No pleural effusion or pneumothorax. These areas are occult on chest film due to portable technique and large body habitus. Chest is not fully assessed but bilateral lung base pn eumonia is suspected. Diffuse fatty infiltration is present in a normal size liver. No focal liver lesions identifiable. No splenomegaly or focal splenic finding. Cholecystectomy clips are present. No biliary tree dilatation . Homogeneous pancreatic parenchyma with no mass. No peripancreatic inflammatory or edematous stranding . Symmetric renal function is seen with no hydronephrosis or suspicious renal mass. No pyelonephritis o r acute parenchymal process. An 11 millimeter nonobstructing parenchymal or calyx calcification is pr esent posterior lower pole left kidney. Small cysts are present in the left kidney. No perinephric st randing. No adrenal abnormalities. Urinary bladder is fully contracted limiting assessment. No bladder calculi seen. Uterus and ovaries show no suspicious findings. No dilated bowel loops or bowel wall thickening. No free air, free fluid or inflammatory stranding. No mass or bulky lymphadenopathy. A very small left inguinal hernia is present. Fat only periumbilic al hernia is present. No involved bowel. Neck is 3 cm. Hernia is 4 cm AP by 2.5 cm TR. No congestion or edema. No suspicious bony findings. IMPRESSION: Contrast-enhanced CT abdomen pelvis imaging shows no acute or active process. Fatty infiltration of a normal size liver. Patient is status post cholecystectomy with no biliary or pancreatic acute finding. Small fat only periumbilical hernia is present along with a very small fat only left inguinal hernia.
[2019-11-26] MEDS ORDERED: ALBUTEROL 2.5 MG/3 ML NEB SOL NEB PRN (16:00)
[2019-11-26] MEDS ORDERED: GLUCAGON 1 MG/VIAL IM PRN (16:12)
[2019-11-26] MEDS ORDERED: D50W 25 GM/50 ML SYRINGE/VIAL IV PRN (16:12)
[2019-11-26] MEDS: INSULIN -REGULAR HUMAN 50 UNIT/0.5 ML ML SQ SCH ×2 (17:10→21:00)
[2019-11-26] MEDS: ALPRAZOLAM 0.25 MG TABLET PO PRN (21:26)
[2019-11-27] MEDS: PIPER/TAZO/NS 3.375gm 3.375 GM/100 ML BAG IVPB SCH ×2 (01:20→08:27)
[2019-11-27] MEDS: NA CHLORIDE 0.9% 1,000 ML IV SCH ×2 (04:56→14:00)
[2019-11-27 06:06] LABS: Absolute Lymphocytes (CBC) 2.6 K/uL (0.7-4.9); Basophils % 0.9 % (0-1.3); Hematocrit 37.6 % (36.0-45.0); MPV 9.3 fL (7.6-11.3)
[2019-11-27 06:19] LABS: ALT/SGPT 27 U/L (12-78); AST/SGOT 13 U/L (15-37); Albumin 2.9 g/dL (3.4-5.0); Alkaline Phosphatase 47 U/L (45-117); BUN Blood Urea Nitrogen 5 mg/dL (7-18); Bicarbonate 23 mmol/L (21-32); Bilirubin Total 0.5 mg/dL (0.2-1.0); Glucose Level 187 mg/dL (74-106); Potassium 3.4 mmol/L (3.5-5.1); Protein, Total 6.3 g/dL (6.4-8.2); Sodium Level 143 mmol/L (136-145)
--- NOTE | 2019-11-27 07:03 | EKG ---
Test Date: 2019-11-25 Test Time: 19:39:11 [employer] Associate: BRYON MEASUREMENT RESULTS: Intervals: Rate: 117 OK: 186 QRSD: 82 QT: 308 QTc: 429 Joshua: P: -20 OK: 186 QRS: -5 T: 11 INTERPRETIVE STATEMENTS: Sinus tachycardia Inferior infarct, age undetermined Abnormal ECG No previous ECG available for comparison Electronically Signed On 11-27-19 07:00:28 CDT by Anthony Silva
[2019-11-27] MEDS: INSULIN -REGULAR HUMAN 50 UNIT/0.5 ML ML SQ SCH ×2 (07:30→11:30)
--- NOTE | 2019-11-27 08:21 | P.DS ---
Discharge Date: 11/27/19 Disposition: ROUTINE DISCHARGE Discharge Condition: GOOD Reason for Admission: Fever; leukocytosis; nausea/vomiting/diarrhea; lactic acidosis - Problems (1) Abdominal pain Status: Acute (2) Intractable nausea and vomiting Status: Acute (3) Diarrhea Status: Acute (4) Lactic acidosis Status: Acute (5) Leukocytosis Status: Acute Brief History of Present Illness: patient is a 59-year-old female who came to the hospital with intractable nausea vomiting and diarrhea. She has been feeling sick for over a week. She started off with abdomen pain along with persistent vomiting. She started off with the nausea and vomiting a week prior. This resolved and then she started having multiple days of diarrhea. She has had some abdominal discomfort, but she has spiked temp of a 103 so she came into the hospital because she thought she may have COVID-19. Patient's chest x-ray was unremarkable. Because of her fever and her abdominal symptoms she was admitted to the hospital for possible sepsis. Hospital Course: Patient has done well. No overt infection on CT scan. Continue on oral antibiotics for 2 more weeks. At this time, patient is stable for discharge home with outpatient follow-up. Patient will need evaluation by GI as an outpatient. Outpatient colonoscopy or EGD in 1-2 weeks. Vital Signs/Physical Exam: Temp Pulse Resp BP Pulse Ox 97.2 F 72 16 141/75 H 95 11/27/19 04:00 11/27/19 04:00 11/27/19 04:00 11/27/19 04:00 11/27/19 04:00 General: Alert, In no apparent distress, Oriented x3 Laboratory Data at Discharge: WBC 12.0 K/uL (4.3-10.9) H D 11/27/19 05:50 Hgb 12.7 g/dL (12.0-15.0) 11/27/19 05:50 Hct 37.6 % (36.0-45.0) 11/27/19 05:50 Plt Count 259 K/uL (152-406) 11/27/19 05:50 PT 11.3 SECONDS (9.5-12.5) 11/25/19 19:45 INR 0.96 11/25/19 19:45 APTT 27.1 SECONDS (24.3-36.9) 11/25/19 19:45 Sodium 143 mmol/L (136-145) 11/27/19 05:50 Potassium 3.4 mmol/L (3.5-5.1) L 11/27/19 05:50 BUN 5 mg/dL (7-18) L 11/27/19 05:50 Creatinine 0.64 mg/dL (0.55-1.3) 11/27/19 05:50 Glucose 187 mg/dL (74-106) H 11/27/19 05:50 Phosphorus 3.4 mg/dL (2.5-4.9) 11/26/19 05:21 Magnesium 1.9 mg/dL (1.8-2.4) 11/26/19 05:21 Total Bilirubin 0.5 mg/dL (0.2-1.0) 11/27/19 05:50 AST 13 U/L (15-37) L 11/27/19 05:50 ALT 27 U/L (12-78) 11/27/19 05:50 Alkaline Phosphatase 47 U/L (45-117) 11/27/19 05:50 Amylase 46 U/L (25-115) 11/25/19 19:45 Lipase 95 U/L (73-393) 11/25/19 19:45 Home Medications: RX: Folic Acid 1 mg PO DAILY #0 tablet 09/20/11 RX: Aspirin [Aspirin EC 81 MG] 81 mg PO DAILY 11/26/19 RX: Lovastatin 40 mg PO BEDTIME 11/26/19 RX: Metformin HCl [Glucophage] 1,000 mg PO BIDWM 11/26/19 Levofloxacin [Levaquin] 500 mg PO DAILY #7 tablet 11/27/19 metroNIDAZOLE [Flagyl] 500 mg PO Q8H #21 tablet 11/27/19 New Medications: metroNIDAZOLE [Flagyl] 500 mg PO Q8H #21 tablet Levofloxacin [Levaquin] 500 mg PO DAILY #7 tablet Patient Discharge Instructions: OK TO DC IV AND DC HOME. FOLLOW-UP WITH PRIMARY CARE PROVIDER IN 1-2 WEEKS. FOLLOW-UP WITH GI IN 1-2 WEEKS. RETURN TO THE ER IF symptoms worsen. CALL or TEXT DR. STEVEN AT [phone] IF ANY QUESTIONS REGARDING HOSPITAL STAY. PLEASE CALL THE FLOOR AT [phone] IF ANY MEDICATION OR NURSING QUESTIONS. Diet: ADA Activity: Fall precautions Followup: Obey Benjamin MD [ACTIVE - CAN ADMIT] - Boris Ríos MD [ASSOCIATE-ACTIVE - CAN ADMIT] - Time spent managing pt's care (in minutes): 20
[2019-11-27] MEDS: FOLIC ACID 1 MG TABLET PO SCH (08:25)
[2019-11-27] MEDS: ENOXAPARIN 40 MG/0.4 ML SQ SCH (08:25)
[2019-11-27] MEDS: ASPIRIN EC 81 MG TAB PO SCH (08:25)
[2019-11-27] MEDS ORDERED: POTASSIUM 25 MEQ EFFERV TAB PO ONE (09:00)
[2019-11-27 12:17] LABS: C.diff Antigen/Toxin Ag neg : Tox neg (NEG : NEG)
[2019-11-27] MEDS ORDERED: HYDRALAZINE HCL 20 MG/ML VIAL IV PRN (12:24)
[2019-11-27 12:33] VITALS: TEMP 97.6
[2019-11-27 13:01] VITALS: O2SAT 96
[2019-11-27 15:26] VITALS: BP 150/75
== END 2019-11-27 15:52 | disposition home or self-care (01) | DRG 872 ==
LOC: ER 18:26 → ERHOLD 21:47 → 4TH 22:34 → 2ND 11-26 02:48
PROVIDERS: ADMIT Hospitalist; ATTEND Hospitalist
DX: A41.9 Sepsis, unspecified organism (principal); E87.2 Acidosis; E78.5 Hyperlipidemia, unspecified; E11.9 Type 2 diabetes mellitus without complications; R50.9 Fever, unspecified; I10 Essential (primary) hypertension; Z79.84 Long term (current) use of oral hypoglycemic drugs; Z79.82 Long term (current) use of aspirin; Z79.899 Other long term (current) drug therapy; Z90.49 Acquired absence of other specified parts of digestive tract; Z90.710 Acquired absence of both cervix and uterus; Z86.73 Personal history of transient ischemic attack (TIA), and cerebral infarction without residual deficits; Z20.828 Contact with and (suspected) exposure to other viral communicable diseases
CPT/HCPCS: 36415; 70450; 71045; 74177; 80048; 80053; 80076; 81003; 81015; 81025; 82150; 82550; 82553; 82947; 83605; 83690; 83735; 84100; 84145; 84484; 85025; 85610; 85730; 87040; 87045; 87046; 87070; 87081; 87086; 87088; 87177; 87209; 87324; 87449; 87804; 93005; 96361; 96365; 96366; 99285; J0360; J0696; J1650; J2543; J7030; Q9967

== ENCOUNTER 2021-12-10 15:09 | Emergency (ER) | payer BC, SELFPAY ==
--- OUTSIDE RECORDS SUMMARY | 2021-12-10 15:13 | XMS REPORT | Continuity of Care Document ---
:1960 Author Organization [facility] t Address [address] [place] [address] Care Team Providers Name Role Phone Alejandro Weinstein Primary Care Physician Alejandro MUNOZ Attending Clinician Unavailable Alejandro Weinstein Attending Clinician Problems Condition Condition Condition Status Onset Resolution Last Treating Co mments Source Name Details Category Date Date Treatment Clinician Date Contracept Contracept Disease Active U seth murray murray 5-10 ity of management management [place]: [id number] Morbid Morbid Disease Active Univers obesity obesity 5-10 ity of 00:: [address] Type 2 Type 2 Disease Active Univers diabetes diabetes 5-10 ity of mellitus mellitus 00:00: [address] Essential Essential Disease Active Uni vers hypertensi hypertensi 5-10 it y of on, benign on, benign 00:00: [id number] History of History of Disease Active U nivers tubal tubal 5-10 ity of ligation ligation 00:00: [address] Allergies, Adverse Reactions, Alerts Allergy Allergy Status Severity Reaction(s) Onset Inactive Treating Comm ents Source Name Type Date Date Clinician NO KNOWN Drug Active Univers ALLERGIE Class ity of S [facility] Social History Social Habit Start Date Stop Date Quantity Comments Source Exposure to Not sure [facility] SARS-CoV-2 [facility] (event) Branch Alcohol intake 2021-07-20 2021-07-20 0 /d University of 00:00:00 00:00:00 [facility] History of 2007-09-12 Cigarette Smoker Universi ty of tobacco use 00:00:00 [facility] Sex Ass[birth year] At [birth year] Universit y of 00:00:00 00:00:00 [facility] Smoking Status Start Date Stop Date Source Former smoker 2021-03-17 00:00:00 2021-03-17 00:00:00 [facility] Medications Ordered Filled Start Stop Current Ordering Indication Dosage Frequency Signature Comments Components Source Medication Medication Date Date Medication? Clinician (SIG) Name Name lisinopril Yes 10mg Take 10 mg U nivers (PRINIVIL,Z 9-07 by mouth ity of ESTRIL) 10 14:28: daily. [place] mg tablet 55 [facility] atorvastati Yes 40mg Take 40 mg Univers n 40 mg 9-07 by mouth ity of tablet 14:28: at [place] [address] bedtime. Medical Branch lisinopril Yes 10mg Take 10 mg U nivers (PRINIVIL,Z 9-07 by mouth ity of ESTRIL) 10 14:28: daily. [place] mg tablet 55 Medical Branch atorvastati Yes 40mg Take 40 mg Univers n 40 mg 9-07 by mouth ity of tablet 14:28: at [place] [address] bedtime. Medical Branch lisinopril 0 Yes 10mg Take 10 mg U nivers (PRINIVIL,Z 9-07 by mouth ity of ESTRIL) 10 14:28: daily. [place] mg tablet 55 [facility] atorvastati Yes 40mg Take 40 mg Univers n 40 mg 9-07 by mouth ity of tablet 14:28: at [place] [address] bedtime. Medical Branch METFORMIN 2020-0 Yes Take by [facility] ers HCL 3-04 mouth. ity of (METFORMIN 10:08: [place] ORAL) 16 Medical Branch METFORMIN 2020-0 Yes Take by [facility] ers HCL 3-04 mouth. ity of (METFORMIN 10:08: [place] ORAL) 16 Medical Branch METFORMIN 2020-0 Yes Take by [facility] ers HCL 3-04 mouth. ity of (METFORMIN 10:08: [place] ORAL) [address] [place] [address] Immunizations Ordered Filled Immunization Date Status Comments Sour e Immunization Name Name TDAP 2012-11-16 Completed [facility] 00:00:00 [facility] TDAP 2012-11-16 Completed University of 00:00:00 [facility] TDAP 2012-11-16 Completed University 00:00:00 [facility] Vital Signs Vital Name Observation Time Observation Value Comments Source Systolic blood 2021-07-20 16:10:00 128 mm[Hg] Univer sity of pressure [facility] Diastolic blood 2021-07-20 16:10:00 89 mm[Hg] Unive rsity of [facility] Heart rate 2021-07-20 16:10:00 65 /min [facility] Body temperature 2021-07-20 16:10:00 35.78 Deandra [facility] Res[facility] rate 2021-07-20 16:10:00 16 /min [facility] Body height 2021-07-20 16:10:00 165.1 cm [facility] Body weight 2021-07-20 16:10:00 100.925 kg [facility] BMI 2021-07-20 16:10:00 37.03 kg/m2 [facility] Procedures This patient has no known procedures. Encounters Start End Encounter Admission Attending Care Care Encounter Source Date/Time Date/Time Type Type Clinicians Facility Department ID 2021-07-20 2021-07-20 Outpatient R [facility] [id number] [facility] 06:51:13 23:59:00 JASPAL wasserman o f [facility] 2021-07-20 2021-07-20 [facility] [id number] Univers 06:51:13 23:59:00 Encounter Jaspal Allne SPECIALTY [id number] ity of CARE [id number] [facility] AT [id number] [place] dicchristal [facility] [address] 2021-07-20 2021-07-20 Office [facility] [id number] Univers 09:45:00 10:20:42 Visit Jaspal Allen PRODUCTION ILLUSTRATOR [id number] ity of REGIONAL [id number] Mark as MATERNAL [id number] Med ical & CHILD [address] [place] [address] 2019-09-12 2019-09-12 Office [facility] [id number] 09:45:38 10:44:27 Visit Jaspal Alejandro PRODUCTION ILLUSTRATOR [id number] [facility] [id number] MATERNAL [id number] & CHILD [address] [place] [address] Results Test Description Test Time Test Comments Results Result Comments Source SARS-COV2/RT-PCR ([facility]) 2019-11-26 01:04:00 Test Item Value Reference Range Interpretation Comme nts SARS-COV2/RT-PCR (test code = [id number]) Not Detected Not Detected, N egative SARS-COV-2 PERFORMING LAB (test code = [facility] [id number]) Negative results do not preclude SARS-CoV-2 infection and should not be used as the sole basis for patient management decisions. Negative results must be combined with clinical observations, patient history, and epidemiological information. A false negative result may occur if a specimen is improperly collected, transported or handled.The limit of detection for this assay is 250 copies/mL.This SARS CoV-2 test is a rapid, real-time RT-PCR test intended for the qualitative detection of nucleic acid from SARS-CoV-2 in a nasopharyngeal swab specimen collected from individuals suspected of COVID-19 by their healthcare provider.This test has not been Food and Drug Administration (FDA) cleared or approved and has been authorized by FDA under an Emergency Use Authorization (EUA). This EUA will be effective until the declaration that circumstances exist justifying the authorization of the emergency use of in vitro diagnostic tests for detection and/or diagnosis of COVID-19 is terminated under Section 564(b)(2) of the Act or the EUA is revoked under Section 564(g) of the Act.Fact Sheet for Healthcare Pro viders:https://www.[employer]iere/Documents/Xpert%20Xpress%20SARS%20CoV-2/Fact%20Sh eets/378-5576%94RBSW-QCK-7%20HEALTHCARE%20PROVIDERS%20FACT%20SHEET.pdfFact Sheet for Healthcare Patients:https://www.[employer]/Documents/Xpert%20Xpress%20SARS%20CoV-2/Fact%20Sheets/982-3801%20SARS-COV -2%20PATIENT%20FACT%20SHEET.pdfPerforming Laboratory:[facility] [place] [address]
--- NOTE | 2021-12-10 16:04 | EDPHYS ---
Physician Documentation [facility] Name: Jayna Landon Age: 61 yrs Sex: Female : 1960 Arrival Date: 12/10/2021 Time: 15:13 Bed 8 Private MD: Dinorah Martínez ED Physician Gurinder Narvaez HPI: 12/10 15:58 This 61 yrs old Female presents to ER via Ambulatory with complaints of brian Flushed, Eye Problem - bruise. 15:58 The patient sustained unk. Onset: The symptoms/episode began/occurred 1 day(s) ago. brian Aggravated by nothing. Alleviated by nothing. Associated signs and symptoms: Pertinent positives: None. Pertinent negatives: None. Severity of symptoms: At their worst the symptoms were mild in the emergency department the symptoms have resolved and did so just prior to arrival. The patient has not experienced similar symptoms in the past. Historical: - Allergies: 15:17 No Known Allergies; tw2 - Home Meds: 15:17 lisinopril Oral [Active]; Metformin Oral [Active]; tw2 - PMHx: 15:17 CVA; Diabetes; Hypertension; tw2 - Immunization history:: Adult Immunizations unknown. - Social history:: Smoking status: Patient denies any tobacco usage or history of. - Family history:: not pertinent. ROS: 15:58 Constitutional: Negative for fever, chills, and weight loss, ENT: Negative for injury, brian pain, and discharge, Neck: Negative for injury, pain, and swelling, Cardiovascular: Negative for chest pain, palpitations, and edema, Respiratory: Negative for shortness of breath, cough, wheezing, and pleuritic chest pain, Abdomen/GI: Negative for abdominal pain, nausea, vomiting, diarrhea, and constipation, Back: Negative for injury and pain, : Negative for injury, bleeding, discharge, and swelling, MS/Extremity: Negative for injury and deformity, Skin: Negative for injury, rash, and discoloration, Neuro: Negative for headache, weakness, numbness, tingling, and seizure, Psych: Negative for depression, anxiety, suicide ideation, homicidal ideation, and hallucinations, Allergy/Immunology: Negative for hives, rash, and allergies, Endocrine: Negative for neck swelling, polydipsia, polyuria, polyphagia, and marked weight changes, Hematologic/Lymphatic: Negative for swollen nodes, abnormal bleeding, and unusual bruising. 15:58 Eyes: Positive for of the right upper eyelid. Exam: 15:58 Constitutional: This is a well developed, well nourished patient who is awake, alert, brian and in no acute distress. Head/Face: Normocephalic, atraumatic. Eyes: Pupils equal round and reactive to light, extra-ocular motions intact. Lids and lashes normal. Conjunctiva and sclera are non-icteric and not injected. Cornea within normal limits. Periorbital areas with no swelling, redness, or edema. ENT: Nares patent. No nasal discharge, no septal abnormalities noted. Tympanic membranes are normal and external auditory canals are clear. Oropharynx with no redness, swelling, or masses, exudates, or evidence of obstruction, uvula midline. Mucous membranes moist. Neck: Trachea midline, no thyromegaly or masses palpated, and no cervical lymphadenopathy. Supple, full range of motion without nuchal rigidity, or vertebral point tenderness. No Meningismus. Chest/axilla: Normal chest wall appearance and motion. Nontender with no deformity. No lesions are appreciated. Cardiovascular: Regular rate and rhythm with a normal S1 and S2. No gallops, murmurs, or rubs. Normal PMI, no JVD. No pulse deficits. Respiratory: Lungs have equal breath sounds bilaterally, clear to auscultation and percussion. No rales, rhonchi or wheezes noted. No increased work of breathing, no retractions or nasal flaring. Abdomen/GI: Soft, non-tender, with normal bowel sounds. No distension or tympany. No guarding or rebound. No evidence of tenderness throughout. Back: No spinal tenderness. No costovertebral tenderness. Full range of motion. Female : Normal external genitalia. Skin: Warm, dry with normal turgor. Normal color with no rashes, no lesions, and no evidence of cellulitis. MS/ Extremity: Pulses equal, no cyanosis. Neurovascular intact. Full, normal range of motion. Neuro: Awake and alert, GCS 15, oriented to person, place, time, and situation. Cranial nerves II-XII grossly intact. Motor strength 5/5 in all extremities. Sensory grossly intact. Cerebellar exam normal. Normal gait. Psych: Awake, alert, with orientation to person, place and time. Behavior, mood, and affect are within normal limits. 15:59 Neuro: Orientation: is normal, appropriate for stated age, no acute changes, Mentation: brian is normal, appropriate for stated age, no acute changes, Memory: is normal, appropriate for stated age, no acute changes, Cranial nerves: grossly normal, is grossly normal based on the patient's age, no acute changes, Cerebellar function: is grossly normal, Motor: is normal, is grossly normal based on the patient's age, no acute changes, moves all fours, strength is 5/5 in all extremities, Sensation: no obvious gross deficits, appropriate no acute changes, Gait: is steady, appropriate for age, Deep tendon reflexes are 2+ (normal) in the bilateral brachioradialis, bicep, tricep and patellar and Achilles tendons, Babinski testing is normal, seizure activity, is not displayed by the patient. Vital Signs: 15:23 BP 167 / 80; Pulse 81; Resp 18 S; Temp 99.0(TE); Pulse Ox 98% on R/A; Weight 99.34 kg aa5 (R); Height 5 ft. 5 in. (165.10 cm) (R); Pain 0/10; 15:23 Body Mass Index 36.44 (99.34 kg, 165.10 cm) aa5 NIH Stroke Scale Scores: 15:20 NIHSS Score: 0 bp MDM: 15:22 Patient medically screened. brian 16:00 Differential diagnosis: Corneal abrasion of Foreign body in. Data reviewed: vital brian signs, nurses notes. Data interpreted: space sciences director: rate is 81 beats/min, rhythm is regular, Pulse oximetry: on room air is 98 %. Counseling: I had a detailed discussion with the patient and/or guardian regarding: the historical points, exam findings, and any diagnostic results supporting the discharge/admit diagnosis, lab results, radiology results, the need for outpatient follow up, for definitive care, a family practitioner. Administered Medications: 16:15 Not Given (Patient Refused): Aspirin 81 mg PO once bp Disposition Summary: 12/10/21 16:04 Discharge Ordered Location: Home brian Problem: new brian Symptoms: have improved brian Condition: Stable brian Diagnosis - Contusion of eyeball and orbital tissues, right eye brian Followup: brian - With: Dinorah Martínez MD - When: 2 - 3 days - Reason: Recheck today's complaints, Continuance of care, Re-evaluation by your physician Followup: brian - With: Jose David Peoples MD - When: 2 - 3 days - Reason: Recheck today's complaints, Re-evaluation by your physician Discharge Instructions: - Discharge Summary Sheet brian - Contusion brian - Contusion, [id number] brain - Aspirin and Your Heart brian Forms: - Medication Reconciliation Form brian - Thank You Letter brian - Antibiotic Education brian - Prescription Opioid Use brian NIH Stroke Scale - NIH Stroke Score Date: 12/10/2021 Time: 15:20 Total Score = 0 1a. Level of Consciousness (LOC) - 0(Alert) 1b. Level of Consciousness (LOC) (Month \T\ Age) - 0(Both) 1c. LOC Commands (Open \T\ Closes Eyes/Graduate Advisor) - 0(Both) 2. Best Gaze (Lateral Gaze Paresis) - 0(Normal) 3. Visual Field Loss - 0(No visual loss) 4. Facial Palsy - 0(Normal) 5a. Left Arm: Motor (10-second hold) - 0(No drift) 5b. Right Arm: Motor (10-second hold) - 0(No drift) 6a. Left Leg: Motor (5-second hold - always test supine) - 0(No drift) 6b. Right Leg: Motor (5-second hold - always test supine) - 0(No drift) 7. Limb Ataxia (finger/nose \T\ heel/guillermo - test with eyes open) - 0(Absent) 8. Sensory Loss (pinprick arms/legs/face) - 0(Normal) 9. Best Language: Aphasia (description/naming/reading) - 0(No aphasia) 10. Dysarthria (speech clarity - read or repeat words) - 0(Normal) 11. Extinction and Inattention (visual/tactile/auditory/spatial/personal) - 0(No abnormality) Initials: bp Signatures: Gurinder Narvaez MD MD cha Calderon, Audri RN RN aa5 Domonique Duarte RN RN tw2 Jesus Cope RN bp
--- NOTE | 2021-12-10 16:04 | ER ---
Nurse's Notes [facility] Name: Jayna Landon Age: 61 yrs Sex: Female : 1960 Arrival Date: 12/10/2021 Time: 15:13 Bed 8 Private MD: Dinorah Martínez Diagnosis: Contusion of eyeball and orbital tissues, right eye Presentation: 12/10 15:16 Note pt in restroom at this time. tw2 15:20 Chief complaint: Patient states: "my co-worker noted that I had a bruise on my right aa5 upper eyelid and that my face was flushed and really red". pt denies any symptoms, denies numbness and tingling. No neuro deficits noted or reported. Coronavirus screen: At this time, the client does not indicate any symptoms associated with coronavirus-19. Ebola Screen: No symptoms or risks identified at this time. Onset of symptoms was December 10, 2021. 15:20 Acuity: LOIDA 3 aa5 15:20 Method Of Arrival: Ambulatory aa5 15:20 Risk Assessment: Do you want to hurt yourself or someone else? Patient reports no aa5 desire to harm self or others. 15:20 No acute neurological deficit is noted. Pre-hospital glucose is not applicable to this aa5 patient. Initial Sepsis Screen: Does the patient meet any 2 criteria? No. Patient's initial sepsis screen is negative. Does the patient have a suspected source of infection? No. Patient's initial sepsis screen is negative. Triage Assessment: 15:16 The onset of the patients symptoms was December 10, 2021 at 11:30. General: Appears in no tw2 apparent distress. obese, well groomed, Behavior is cooperative, appropriate for age. Pain: Denies pain. EENT: Lid(s) bruising noted to right eyelid. Neuro: Reports denies numbness/pain. Historical: - Allergies: 15:17 No Known Allergies; tw2 - Home Meds: 15:17 lisinopril Oral [Active]; Metformin Oral [Active]; tw2 - PMHx: 15:17 CVA; Diabetes; Hypertension; tw2 - Immunization history:: Adult Immunizations unknown. - Social history:: Smoking status: Patient denies any tobacco usage or history of. - Family history:: not pertinent. Screenin:18 Abuse screen: Denies threats or abuse. Nutritional screening: No deficits noted. tw2 Tuberculosis screening: No symptoms or risk factors identified. Fall Risk None identified. Assessment: 15:20 VAN Scoring: Arm Drift: Patients demonstrates NO arm weakness. Patient is VAN Negative. bp The patient has not been NPO before screening. The patient is alert, and able to follow commands. The patient does not exhibit slurred or garbled speech. The patient is not exhibiting difficulty speaking. The patient does not exhibit difficulty understanding words. The patient is able to swallow own secretions with no drooling or need for suction. Patient tolerated one teaspoon of water. No drooling, immediate coughing, gurgling, or clearing of the throat was noted. The patient tolerated 90mL of water. No drooling, immediate coughing, gurgling, or clearing of the throat was noted. The patient passed the bedside swallow screening. Oral medications may be given as ordered. Contact Physician for further diet orders. Provider notified of bedside swallow screening results: Gurinder Narvaez MD. T-PA (Activase) Screening: Contraindications: Coma, severe obtundation, fixed pupils, deviation, or complete hemiplegia: Yes. Rapidly improving condition or minor deficit: Yes. General: SEE TRIAGE NOTE. 16:15 Reassessment: PT DC HOME AMBULATORY, DX WITH EYELID CONTUSION. bp Vital Signs: 15:23 BP 167 / 80; Pulse 81; Resp 18 S; Temp 99.0(TE); Pulse Ox 98% on R/A; Weight 99.34 kg aa5 (R); Height 5 ft. 5 in. (165.10 cm) (R); Pain 0/10; 15:23 Body Mass Index 36.44 (99.34 kg, 165.10 cm) aa5 NIH Stroke Scale Scores: 15:20 NIHSS Score: 0 bp ED Course: 15:13 Patient arrived in ED. am2 15:14 Dinorah Martínez MD is Private Physician. am2 15:17 Arm band placed on. tw2 15:20 Patient has correct armband on for positive identification. Bed in low position. Call bp light in reach. Side rails up X2. 15:22 Triage completed. aa5 15:22 Gurinder Narvaez MD is Attending Physician. brian 15:42 Jesus Cope, CORI is Primary Nurse. bp 16:02 Dinorah Martínez MD is Referral Physician. brian 16:03 Jose David Peoples MD is Referral Physician. brian 16:15 No provider procedures requiring assistance completed. Patient did not have IV access bp during this emergency room visit. Administered Medications: 16:15 Not Given (Patient Refused): Aspirin 81 mg PO once bp Medication: 15:20 VIS not applicable for this client. bp Outcome: 16:04 Discharge ordered by MD. brian 16:15 Discharged to home ambulatory. bp 16:15 Condition: stable 16:15 Discharge instructions given to patient, Instructed on discharge instructions, follow up and referral plans. Demonstrated understanding of instructions, follow-up care. 16:16 Patient left the ED. bp NIH Stroke Scale - NIH Stroke Score Date: 12/10/2021 Time: 15:20 Total Score = 0 1a. Level of Consciousness (LOC) - 0(Alert) 1b. Level of Consciousness (LOC) (Month \\T\\ Age) - 0(Both) 1c. LOC Commands (Open \\T\\ Closes Eyes/Drawing In Machine Tender Helper) - 0(Both) 2. Best Gaze (Lateral Gaze Paresis) - 0(Normal) 3. Visual Field Loss - 0(No visual loss) 4. Facial Palsy - 0(Normal) 5a. Left Arm: Motor (10-second hold) - 0(No drift) 5b. Right Arm: Motor (10-second hold) - 0(No drift) 6a. Left Leg: Motor (5-second hold - always test supine) - 0(No drift) 6b. Right Leg: Motor (5-second hold - always test supine) - 0(No drift) 7. Limb Ataxia (finger/nose \\T\\ heel/guillermo - test with eyes open) - 0(Absent) 8. Sensory Loss (pinprick arms/legs/face) - 0(Normal) 9. Best Language: Aphasia (description/naming/reading) - 0(No aphasia) 10. Dysarthria (speech clarity - read or repeat words) - 0(Normal) 11. Extinction and Inattention (visual/tactile/auditory/spatial/personal) - 0(No abnormality) Initials: bp Signatures: Gurinder Narvaez MD MD cha Calderon, Audri, RN RN aa5 Domonique Duarte RN RN tw2 Cari Duenas am2 Anatoliy, Jesus, RN RN bp Corrections: (The following items were deleted from the chart) 15:22 15:16 Chief complaint: Friend and/or Co-Worker states: facial droop around 1130 aa5 this morning. pt had no different feeling. just droop on RIGHTside noted earlier this morning tw2 15:24 15:23 99.34 kg Reported; Height 5 ft. 5 in. Reported; BMI: 36.4; aa5 aa5 15:27 15:20 Chief complaint: Patient states: "my co-worker noted that I had a bruise aa5 on my right upper eyelid and that my face was flushed and really red". pt denies any symptoms, denies numbness and tingling. aa5
[2021-12-10 16:21] VITALS: BP 167/80; TEMP 99; O2SAT 98
== END 2021-12-10 16:16 | disposition home or self-care (01) ==
LOC: ER 15:09
DX: S05.11XA Contusion of eyeball and orbital tissues, right eye, initial encounter (principal); E11.9 Type 2 diabetes mellitus without complications; I10 Essential (primary) hypertension
CPT/HCPCS: 99281

== ENCOUNTER 2025-04-11 17:16 | Emergency (ER) | payer OTHER, SELFPAY ==
--- NOTE | 2025-04-11 17:40 | ER ---
Nurse's Notes [facility] Name: Jayna Landon Age: 64 yrs Sex: Female : 1960 Arrival Date: 04/11/2025 Time: 17:16 Bed IW6 Private MD: Diagnosis: Hordeolum externum left upper eyelid Presentation: 04/11 17:27 Chief complaint: Patient states: LT EYELID SWELLING, HEADACHE AND LT EAR PAIN THAT dd2 BEGAN YESTERDAY AND WORSE TODAY. Coronavirus screen: At this time, the client does not indicate any symptoms associated with coronavirus-19. Ebola Screen: No symptoms or risks identified at this time. Initial Sepsis Screen: Does the patient meet any 2 criteria? No. Patient's initial sepsis screen is negative. Does the patient have a suspected source of infection? No. Patient's initial sepsis screen is negative. Risk Assessment: Do you want to hurt yourself or someone else? Patient reports no desire to harm self or others. Onset of symptoms was April 10, 2025. 17:27 Method Of Arrival: Ambulatory dd2 17:27 Acuity: LOIDA 3 dd2 Triage Assessment: 17:29 Headache History: The patient has had previous headaches and this one is similar to dd2 previous episodes. General: Appears in no apparent distress. uncomfortable, Behavior is calm, cooperative, appropriate for age. Pain: Complains of pain in left frontal area, left temporal area, left ear and left eye Pain currently is 8 out of 10 on a pain scale. Pain began 1 day ago. Also complains of no other associated symptoms. EENT: Lid(s) w/ stye noted left upper eyelid REDNESS AND SWELLING TO LT EYELID. Reports pain in left eye and left ear. Neuro: Reports headache in left. Historical: - Allergies: 17:29 No Known Allergies; dd2 - PMHx: 17:29 CVA; Diabetes; Hypertension; dd2 - PSHx: 17: Cholecystectomy; dd2 - Immunization history:: Adult Immunizations up to date. - Infectious Disease History:: Denies. - Social history:: Smoking status: Patient denies any tobacco usage or history of. Screenin:39 [facility] ED Fall Risk Assessment (Adult) History of falling in the last 3 months, dd2 including since admission No falls in past 3 months (0 pts) Confusion or Disorientation No (0 pts) Intoxicated or Sedated No (0 pts) Impaired Gait No (0 pts) Mobility Assist Device Used No (0 pt) Altered Elimination No (0 pt) Score/Fall Risk Level 0 - 2 = Low Risk Oriented to surroundings, Maintained a safe environment, Educated pt \T\ family on fall prevention, incl call for assistance when getting out of bed, Assessed \T\ reinforced patient's understanding of fall precautions. Abuse screen: Denies threats or abuse. Denies injuries from another. Nutritional screening: No deficits noted. Tuberculosis screening: No symptoms or risk factors identified. Assessment: 17:39 Reassessment: No changes from previously documented assessment. SEE TRIAGE ASSESSMENT. dd2 Vital Signs: 17:27 BP 106 / 73; Pulse 77; Resp 16; Temp 98.3; Pulse Ox 99% on R/A; Weight 97.52 kg; Pain dd2 8/10; 17:27 Pain Scale: Adult dd2 Carrington Coma Score: 19:24 Eye Response: spontaneous(4). Motor Response: obeys commands(6). Verbal Response: dr5 oriented(5). Total: 15. ED Course: 17:22 Patient arrived in ED. al6 17:25 [facility]C [facility] 17:29 Triage completed. dd2 17:29 Arm band placed on right wrist. dd2 17:37 Reece Neil MD is Attending Physician. dr5 17:39 Patient has correct armband on for positive identification. Provided Education on: D/C dd2 EDUCATION. 17:39 No provider procedures requiring assistance completed. Patient did not have IV access dd2 during this emergency room visit. Administered Medications: No medications were administered Medication: 17:39 VIS not applicable for this client. dd2 Outcome: 17:39 Discharge ordered by . dr5 17:39 Discharged to home ambulatory, FROM TRIAGE dd2 17:39 Condition: stable 17:39 Discharge instructions given to patient, Instructed on discharge instructions, follow up and referral plans. Demonstrated understanding of instructions, follow-up care, Prescriptions given X 3, 17:42 Patient left the ED. dd2 Signatures: DA FRANCO RN RN dd2 Tanner Pena FNP-C MOLDING SUPERVISOR-Cdr5 Nathaly Orlando al6 Corrections: (The following items were deleted from the chart) 17:35 17:29 EENT: Lid(s) REDNESS AND SWELLING TO LT EYELID. Reports pain in left eye and left dd2 ear dd2
--- NOTE | 2025-04-11 17:40 | EDPHYS ---
Physician Documentation [facility] Name: Jayna Landon Age: 64 yrs Sex: Female : 1960 Arrival Date: 04/11/2025 Time: 17:16 Bed IW6 Private MD: ED Physician Reece Neil HPI: 04/11 19:24 This 64 yrs old Female presents to ER via Ambulatory with complaints of dr5 Headache, Ear Pain. 19:24 Onset: The symptoms/episode began/occurred acutely. Patient is a 64-year-old female dr5 with history of CVA, diabetes, hypertension coming in with left upper eyelid swelling and pain that started yesterday. Patient reports has been using warm compresses with mild relief. Patient denies numbness or tingling on left side.. Historical: - Allergies: 17:29 No Known Allergies; dd2 - PMHx: 17:29 CVA; Diabetes; Hypertension; dd2 - PSHx: 17:29 Cholecystectomy; dd2 - Immunization history:: Adult Immunizations up to date. - Infectious Disease History:: Denies. - Social history:: Smoking status: Patient denies any tobacco usage or history of. ROS: 19:24 Constitutional: as per hpi dr5 Exam: 19:24 Constitutional: This is a well developed, well nourished patient who is awake, alert, dr5 and in no acute distress. Head/Face: Normocephalic, atraumatic. Eyes: Pupils equal round and reactive to light, extra-ocular motions intact. Lids and lashes normal. Conjunctiva and sclera are non-icteric and not injected. Cornea within normal limits. Periorbital areas with no swelling, redness, or edema. Neck: Trachea midline, no thyromegaly or masses palpated, and no cervical lymphadenopathy. Supple, full range of motion without nuchal rigidity, or vertebral point tenderness. No Meningismus. Chest/axilla: Normal chest wall appearance and motion. Nontender with no deformity. No lesions are appreciated. Cardiovascular: Regular rate and rhythm with a normal S1 and S2. Normal PMI, no JVD. No pulse deficits. Respiratory: Lungs have equal breath sounds bilaterally, clear to auscultation. No rales, rhonchi or wheezes noted. No increased work of breathing, no retractions or nasal flaring. Abdomen/GI: Soft, non-tender, non-distended Back: No spinal tenderness. No costovertebral tenderness. Full range of motion. Skin: Warm, dry with normal turgor. Normal color with no rashes, no lesions, and no evidence of cellulitis. MS/ Extremity: Pulses equal, no cyanosis. Neurovascular intact. Full, normal range of motion. Neuro: Awake and alert, GCS 15, oriented to person, place, time, and situation. Cranial nerves II-XII grossly intact. Motor strength 5/5 in all extremities. Sensory grossly intact. Cerebellar exam normal. Normal gait. 19:24 Eyes: Periorbital structures: appear normal, Pupils: no acute changes, equal, round, and reactive to light and accomodation, Extraocular movements: intact throughout, Lids and lashes: stye, on the left lid, Upper eyelid, Vital Signs: 17:27 BP 106 / 73; Pulse 77; Resp 16; Temp 98.3; Pulse Ox 99% on R/A; Weight 97.52 kg; Pain dd2 8/10; 17:27 Pain Scale: Adult dd2 [place] Coma Score: 19:24 Eye Response: spontaneous(4). Motor Response: obeys commands(6). Verbal Response: dr5 oriented(5). Total: 15. MDM: 17:25 Medical Screening Exam initiated dr5 19:24 Differential diagnosis: Hordeolum, chalazion, otitis media. Data reviewed: vital signs, dr5 nurses notes. Consideration of Admission/Observation Escalation of care including admission/observation considered. Escalation considered patient found to have strokelike symptoms. I considered the following discharge prescriptions or medication management in the emergency department I discussed and recommended Over The Counter medications. Test considered but Not performed: CT: CT considered but patient found to have clinical diagnosis of hordeolum. Care significantly affected by the following chronic conditions: CVA, diabetes, hypertension. Care significantly affected by the following Social Determinants of Health: Poor access to healthcare and/or lack of insurance, Poor access to transportation, Problems related to employment. Counseling: I had a detailed discussion with the patient and/or guardian regarding the historical points, exam findings, and any diagnostic results supporting the discharge/admit diagnosis, the presence of at least one elevated blood pressure reading (>120/80) during this emergency department visit, the need for outpatient follow up, for definitive care, a family practitioner, to return to the emergency department if symptoms worsen or persist or if there are any questions or concerns that arise at home. Special discussion: Based on the history and exam findings, there is no indication for further emergent testing or inpatient evaluation. I discussed with the patient/guardian the need to see the opthamologist for further evaluation of the symptoms, I discussed with the patient/guardian the need to see the primary care provider for further evaluation of the symptoms. ED course: Recommended hot compresses 20 minutes 4 times a day. Will give Keflex given patient is diabetic. Patient also requesting medication refills for her meds. Patient has medications on her. All questions answered. Strict ER precautions given.. Administered Medications: No medications were administered Disposition Summary: 04/11/25 17:39 Discharge Ordered Notes: Location: Home dr5 Condition: Stable dr5 Diagnosis - Hordeolum externum left upper eyelid dr5 Followup: dr5 - With: Emergency Department - When: As needed - Reason: Worsening of condition Followup: dr5 - With: Private Physician - When: 1 - 2 days - Reason: Recheck today's complaints, Continuance of care, Re-evaluation by your physician Discharge Instructions: - Discharge Summary Sheet dr5 - Stye dr5 - Diabetes Mellitus and Nutrition, Adult dr5 Forms: - Work release form dr5 - Medication Reconciliation Form dr5 - Antibiotic Education dr5 - Patient Portal Instructions dr5 - Leadership Thank You Letter dr5 Prescriptions: - oxybutynin chloride 15 mg Oral Tablet, Extended Release 24 hr - take 1 tablet ORAL route daily; 60 tablet; Refills: 0, Product Selection dr5 Permitted - Cephalexin 500 mg Oral Capsule - take 1 capsule ORAL route every 12 hours for 10 days; 20 capsule; Refills: 0, dr5 Product Selection Permitted - Metformin 1,000 mg Oral tablet - take 1 tablet ORAL route every 12 hours with morning and evening meals; 60 dr5 tablet; Refills: 0, Product Selection Permitted Signatures: DA FRANCO RN RN dd2 Tanner Pena FNP-C FNP-Cdr5
[2025-04-11 17:53] VITALS: BP 106/73; TEMP 98.3; O2SAT 99
== END 2025-04-11 17:42 | disposition home or self-care (01) ==
LOC: ER 17:16
DX: H00.014 Hordeolum externum left upper eyelid (principal)
CPT/HCPCS: 99283